=== PATIENT | female | born 1995 | race Caucasian/White ===

== ENCOUNTER 2022-06-11 10:55 | Observation (INO) | payer MEDICAID ==
[~2022-06-11] VITALS: Ht 152.4 cm; Wt 99.8 kg
[2022-06-11 11:05] VITALS: BP 110/61
[2022-06-11] MEDS: LACTATED RINGERS 1,000 ML IV SCH ×2 (12:38→16:41)
[2022-06-11] MEDS ORDERED: PNV1TABL5 PO (14:20)
== END 2022-06-11 18:05 | disposition home or self-care (01) ==
LOC: INTOOBSV 10:55 → MLD 10:55
PROVIDERS: ADMIT Obstetrics & Gynecology; ATTEND Obstetrics & Gynecology
DX: O99.891 Other specified diseases and conditions complicating pregnancy (principal); Z20.822 Contact with and (suspected) exposure to COVID-19; M54.9 Dorsalgia, unspecified; O26.893 Other specified pregnancy related conditions, third trimester; R10.9 Unspecified abdominal pain; Z3A.35 35 weeks gestation of pregnancy
CPT/HCPCS: 76805; 87426; 96360; 96361; G0378; J7120; Q0092